=== PATIENT | male | born 2000 | race Hispanic/Latino ===

== ENCOUNTER 2022-04-03 17:18 | Inpatient (IN) | payer OTHER, SELFPAY ==
[2022-04-03] MEDS ORDERED: Ondansetron PF 4 MG/2 ML Vial ONE (18:20)
[2022-04-03] MEDS ORDERED: Morphine 4 MG/ML VIAL ONE (18:20)
[2022-04-03 18:39] LABS: #Eosinphils 0.1 thou/uL (0.0-0.7); #Lymphocytes 2.3 thou/uL (1.20-3.40); #Monocytes 0.7 thou/uL (0.11-0.59); #Neutrophils 10.3 thou/uL (1.40-6.50); %Eosinophils 0.6 % (0.0-10.0); %Monocytes 4.9 % (0.0-4.0); %Neutrophils 77.4 % (31.0-61.0); Mean Corpuscular HGB CONC 33.3 g/dL (32.0-36.0); Mean Corpuscular Hemoglobin 31.3 pg (25.0-35.0); Mean Corpuscular Volume 93.9 fL (78.0-98.0); Mean Platelet Volume 7.2 fL (7.4-10.4); Platelet Count 393 thou/uL (130-400); RBC Distribution Width 11.5 % (11.5-14.5); White Blood Cell (WBC) Count 13.3 thou/uL (4.8-10.8)
[2022-04-03 18:45] LABS: INR-International Normal Ratio 1.1; PTT 25.7 sec (22.9-36.1); Prothrombin Time 14.4 sec (12.0-14.7)
[2022-04-03] MEDS ORDERED: Naloxone HCl 0.4 mg/ml Vial IV PRN (18:55)
[2022-04-03] MEDS ORDERED: diphenhydrAMINE 50 MG/ML VIAL IVP PRN (18:55)
[2022-04-03] MEDS ORDERED: HYDROmorphone 10 mg/100 ml CADD IVPB PRN (18:55)
[2022-04-03] MEDS ORDERED: diphenhydrAMINE 50 MG/ML VIAL IM PRN (18:55)
[2022-04-03] MEDS ORDERED: Ondansetron PF 4 MG/2 ML Vial IVP PRN (18:55)
[2022-04-03] MEDS ORDERED: diphenhydrAMINE 25 MG CAP PO PRN (18:55)
[2022-04-03] MEDS ORDERED: Zolpidem Tartrate 5 MG TAB PO PRN (18:55)
[2022-04-03] MEDS ORDERED: Promethazine HCl 25 MG/ML VIAL IM PRN (18:55)
[2022-04-03 18:58] LABS: ALT (SGPT) 20 U/L (8-55); AST (SGOT) 28 U/L (5-34); Albumin 4.7 g/dL (3.5-5.0); Alkaline Phosphatase 64 U/L (50-130); Anion Gap 16 mmol/L (10-20); BUN (Urea Nitrogen) 12 mg/dL (8.9-20.6); Bilirubin, Total 0.9 mg/dL (0.2-1.2); Calc. Creatinine Clearance 0 mL/min (70-130); Calcium 9.3 mg/dL (7.8-10.44); Carbon Dioxide 26 mmol/L (22-29); Chloride 103 mmol/L (98-107); Estimated GFR 115; Globulin 3.2 g/dL (2.4-3.5); Glucose 136 mg/dL (70-105); Potassium 3.6 mmol/L (3.5-5.1); Protein, Total 7.9 g/dL (6.0-8.3); Sodium 141 mmol/L (136-145)
[2022-04-03] MEDS ORDERED: TETANUS, DIPHTHERIA TOX,ADULT (TDVAX) 0.5 ML VIAL IM ONE (18:58)
[2022-04-03] MEDS ORDERED: hydrALAZINE 20 MG/ML VIAL SLOW IVP PRN (18:58)
[2022-04-03] MEDS ORDERED: Sodium Chloride 0.9% 1,000 ML IV SCH (19:00)
[2022-04-03] MEDS ORDERED: Communication Order-Pharmacy FS SCH (19:00)
[2022-04-03] MEDS ORDERED: Acetaminophen 500 MG TAB PO SCH (19:15)
[2022-04-03 19:25] LABS: SARS-CoV-2 NAA Rapid Test Not Detected (NotDetected)
[2022-04-03] MEDS ORDERED: Ketamine 50 MG/ML (10ML VIAL) ONE (19:26)
[2022-04-03] MEDS ORDERED: Fentanyl 100 MCG/2 ML VIAL SLOW IVP SCH (22:40)
[2022-04-03] MEDS ORDERED: HYDROmorphone 0.5 MG/0.5 ML SYRINGE IVPB SCH (22:45)
[2022-04-03] MEDS: Famotidine/PF 20 mg/2ml Vial SLOW IVP SCH (23:13)
[2022-04-03] MEDS: Acetaminophen 500 MG TAB PO SCH (23:14)
[2022-04-03] MEDS: Ketorolac Tromethamine 30 MG/ML VIAL IVP SCH (23:16)
[2022-04-03 23:30] VITALS: BMI 25.8
[2022-04-04] MEDS ORDERED: fentaNYL Citrate/PF 100 MCG/2 ML SYRINGE ONE (01:47)
[2022-04-04] MEDS ORDERED: KETAMINE 100 MG/ML (5ML VIAL) SLOW IVP PRN (01:50)
[2022-04-04] MEDS ORDERED: Rocuronium Bromide 10 MG/ML (10ML VIAL) ONE (02:21)
[2022-04-04] MEDS ORDERED: Ketorolac Tromethamine 30 MG/ML VIAL ONE (02:21)
[2022-04-04] MEDS ORDERED: Midazolam HCl 2 mg/2 ml Vial ONE (02:21)
[2022-04-04] MEDS ORDERED: Dexamethasone 20 MG/5 ML VIAL ONE (02:21)
[2022-04-04] MEDS ORDERED: PROPOFOL 200 MG/20 ML VIAL ONE (02:21)
[2022-04-04] MEDS ORDERED: Lidocaine 1% MPF 2 ML VIAL ONE (02:21)
[2022-04-04] MEDS ORDERED: Ondansetron PF 4 MG/2 ML Vial ONE (02:21)
[2022-04-04] MEDS ORDERED: SUGAMMADEX SODIUM 200 MG/2 ML VIAL ONE ×2 (02:43→02:53)
[2022-04-04] MEDS ORDERED: PACU-Morphine 4MG/ML VIAL SLOW IVP PRN (02:45)
[2022-04-04] MEDS ORDERED: Promethazine HCl 25 MG/ML VIAL IVPB PRN (02:45)
[2022-04-04] MEDS ORDERED: HYDROmorphone 2 MG/ML VIAL SLOW IVP PRN (02:45)
[2022-04-04] MEDS ORDERED: Meperidine HCl/PF 25 MG/ML VIAL SLOW IVP PRN (02:45)
[2022-04-04] MEDS ORDERED: Ondansetron HCl/PF 4 MG/2 ML Vial IVP PRN (02:45)
[2022-04-04] MEDS ORDERED: Morphine Sulfate 2 MG/ML SYRINGE SLOW IVP PRN (02:45)
[2022-04-04] MEDS ORDERED: Promethazine HCl 25 MG/ML VIAL IM PRN (02:45)
[2022-04-04] MEDS ORDERED: traMADol HCl 50 MG TAB PO PRN (02:55)
[2022-04-04] MEDS: traMADol HCl 50 MG TAB PO SCH ×3 (05:27→18:03)
[2022-04-04] MEDS: Acetaminophen 500 MG TAB PO SCH ×3 (05:27→18:02)
[2022-04-04] MEDS: Ketorolac Tromethamine 30 MG/ML VIAL IVP SCH ×3 (05:28→18:02)
[2022-04-04 06:01] LABS: #Basophils 0.1 thou/uL (0.0-0.2); #Lymphocytes 0.7 thou/uL (1.20-3.40); #Monocytes 0.2 thou/uL (0.11-0.59); #Neutrophils 11.9 thou/uL (1.40-6.50); %Basophils 0.7 % (0.0-1.0); %Lymphocytes 5.1 % (28.0-48.0); %Monocytes 1.2 % (0.0-4.0); Hemoglobin 14.3 g/dL (14.0-18.0); Mean Corpuscular HGB CONC 33.2 g/dL (32.0-36.0); Mean Corpuscular Hemoglobin 31.3 pg (25.0-35.0); Mean Corpuscular Volume 94.3 fL (78.0-98.0); Platelet Count 313 thou/uL (130-400); RBC Distribution Width 11.6 % (11.5-14.5); Red Blood Cell (RBC) Count 4.58 mill/uL (4.00-5.20); White Blood Cell (WBC) Count 12.8 thou/uL (4.8-10.8)
[2022-04-04 06:07] LABS: INR-International Normal Ratio 1.2; PTT 30.4 sec (22.9-36.1); Prothrombin Time 14.9 sec (12.0-14.7)
[2022-04-04 06:26] LABS: Anion Gap 11 mmol/L (10-20); BUN (Urea Nitrogen) 10 mg/dL (8.9-20.6); Calc. Creatinine Clearance 154 mL/min (70-130); Calcium 9.1 mg/dL (7.8-10.44); Carbon Dioxide 29 mmol/L (22-29); Chloride 103 mmol/L (98-107); Estimated GFR 112; Glucose 151 mg/dL (70-105); Magnesium 1.8 mg/dL (1.7-2.2); Phosphorus 3.4 mg/dL (2.3-4.7); Potassium 4.6 mmol/L (3.5-5.1); Sodium 138 mmol/L (136-145)
[2022-04-04] MEDS: Famotidine/PF 20 mg/2ml Vial SLOW IVP SCH ×2 (08:44→20:34)
[2022-04-04] MEDS ORDERED: Enoxaparin Sodium 30 MG/0.3 ML SYRINGE SC SCH (09:00)
[2022-04-05] MEDS: Ketorolac Tromethamine 30 MG/ML VIAL IVP SCH ×3 (00:26→12:55)
[2022-04-05] MEDS: traMADol HCl 50 MG TAB PO SCH ×3 (00:26→12:55)
[2022-04-05] MEDS: Acetaminophen 500 MG TAB PO SCH ×3 (00:26→12:55)
[2022-04-05] MEDS ORDERED: Enoxaparin Sodium 40 MG/0.4 ML SYRINGE SC SCH (09:00)
[2022-04-05 09:34] VITALS: TEMP 97.1
[2022-04-05] MEDS: Famotidine/PF 20 mg/2ml Vial SLOW IVP SCH (12:55)
[2022-04-05 12:57] VITALS: BP 119/74
== END 2022-04-05 13:40 | disposition home or self-care (01) | DRG 536 ==
LOC: EDBD 17:18 → ERS 17:18 → SURG B 22:31
PROVIDERS: ADMIT Surgery; ATTEND Surgery
PROC: 0QS7XZZ Reposition Left Upper Femur, External Approach (ICD-10-PCS; principal; 2022-04-04)
PROC: 2W6RXZZ Traction of Left Lower Leg (ICD-10-PCS; 2022-04-04)
DX: S72.012A Unspecified intracapsular fracture of left femur, initial encounter for closed fracture (principal); Z20.822 Contact with and (suspected) exposure to COVID-19; W04.XXXA Fall while being carried or supported by other persons, initial encounter; Y93.72 Activity, wrestling; Y92.163 Bedroom in school dormitory as the place of occurrence of the external cause; Y99.8 Other external cause status
CPT/HCPCS: 36415; 71045; 72170; 76000; 80048; 80053; 83605; 83735; 84100; 85025; 85610; 85730; 86850; 86900; 86901; 93005; G0390; J1100; J1650; J1885; J2250; J2270; J2405; J2704; J3010; S0028; U0002

== ENCOUNTER 2022-04-19 09:35 | Outpatient (CLI) | payer OTHER | END 2022-04-19 09:36 | disposition home or self-care (01) | LOC: ULT 09:35 | PROVIDERS: ATTEND Orthopaedic Surgery | DX: S73.005A Unspecified dislocation of left hip, initial encounter (principal) | CPT/HCPCS: 93970 ==